=== PATIENT | male | born 1950 | race Caucasian/White ===

== ENCOUNTER 2016-07-30 06:30 | Day surgery (SDC) | payer MEDICARE, OTHER ==
[~2016-07-30] VITALS: Ht 175.3 cm; Wt 82.2 kg
[~2016-07-30 06:30] MED LIST: APIX5TAB PO; ASPI81TA82 PO; DICL50TA2 PO; METO25CR PO; OMEP20CA5 PO; TAMS0.4C4 PO
[2016-07-30] MEDS ORDERED: SODIUM CHLORIDE 0.9% FLUSH 5 ML FLUSH IV FLUSH PRN (07:00)
[2016-07-30] MEDS ORDERED: SODIUM BICARBONATE 100 MEQ in D5W 1000 ML IV SCH (07:00)
[2016-07-30 07:16] LABS: AUTOMATED NEUTROPHIL # 2.6 TH/MM3 (1.8-7.7); BASOPHIL % 0.6 % (0.0-2.0); EOSINOPHIL # 0.2 TH/MM3 (0-0.4); EOSINOPHIL % 4.6 % (0.0-4.0); HEMATOCRIT 40.9 % (39.0-51.0); HEMO FLAGS DIFF FINAL; LYMPH % 30.3 % (9.0-44.0); LYMPHOCYTE # 1.5 TH/MM3 (1.0-4.8); MEAN CELL VOLUME 93.8 FL (80.0-100.0); MEAN CORPUSCULAR HEMOGLOBIN 32.4 PG (27.0-34.0); MEAN CORPUSCULAR HGB CONC 34.6 % (32.0-36.0); MONO % 10.6 % (0.0-8.0); NEUT % 53.9 % (16.0-70.0); PLATELET COUNT 166 TH/MM3 (150-450); RED BLOOD COUNT 4.36 MIL/MM3 (4.50-5.90); WHITE BLOOD COUNT 4.8 TH/MM3 (4.0-11.0)
[2016-07-30] MEDS ORDERED: METO25TA3 PO (07:37)
[2016-07-30] MEDS ORDERED: [UNRECOGNIZED DRUG - CODE] PO (07:37)
[2016-07-30] MEDS ORDERED: TAMS0.4C4 PO (07:37)
[2016-07-30] MEDS ORDERED: OMEP20TA PO (07:37)
[2016-07-30] MEDS ORDERED: ASPI325T PO (07:37)
[2016-07-30 07:40] VITALS: BP 159/82; PULSE 49; RESP 18; TEMP 98.3; O2SAT 95
[2016-07-30 07:47] LABS: PROTHROMBIN TIME - PATIENT 11.2 SEC (9.8-11.6)
[2016-07-30] MEDS ORDERED: HEPARIN-NS/PF INJ 500 ML ONE (08:01)
[2016-07-30] MEDS ORDERED: HEPARIN SODIUM - IV 10,000 UNITS/10 ML VIAL ONE (08:02)
[2016-07-30] MEDS ORDERED: MIDAZOLAM HCL 5 MG/5 ML VIAL ONE (08:02)
[2016-07-30 08:05] LABS: BICARBONATE 28.2 MEQ/L (21.0-32.0)
--- NOTE | 2016-07-30 08:51 | HHI.PR ---
Immediate Post Op Note Procedure Date: Jul 30, 2016 Pre Op Diagnosis: PAD, L LE claudication Post Op Diagnosis: PAD, L LE claudication Surgeon: Sebastien Mcintosh Virtual Recruiter(s): none Procedure: Aortogram w/ L LE angiogram L SFA VACUUM TECHNICIAN (5mm) R AIRLINE MECHANIC Angioseal Findings: focal (TASC A) lesion Successful VACUUM TECHNICIAN peroneal runoff Complications: none Specimen(s) removed: none Estimated blood loss: 10mL Anesthesia: MAC Drains: None Patient to: Other (docu) Patient Condition: Good Implant/Devices: SEE IMPLANT LOG (if applicable) Date/Time of Procedure: SEE SURGICAL CARE RECORD Sebastien Mcintosh MD Jul 30, 2016 08:51
[2016-07-30] MEDS ORDERED: SODIUM CHLORIDE 0.9% FLUSH 5 ML FLUSH IV FLUSH SCH (09:00)
[2016-07-30] MEDS ORDERED: CLOPIDOGREL 75 MG TAB PO ONE (09:00)
[2016-07-30] MEDS ORDERED: PLAV75TA29 PO (09:11)
[2016-07-30] MEDS ORDERED: IOHEXOL 350 MG/ML 50 ML BTL (for Cath Lab) OTHER ONE (10:58)
[2016-07-30] MEDS ORDERED: IOHEXOL 350 MG/ML 100 ML BTL (for Cath Lab) OTHER ONE (10:58)
--- NOTE | 2016-07-31 09:39 | MP ---
cc: MADDY MCINTOSH MD DATE OF SURGERY 07/30/2016 PREOPERATIVE DIAGNOSIS Left lower extremity claudication. POSTOPERATIVE DIAGNOSIS Left lower extremity claudication. PROCEDURE 1. Aortogram with left lower extremity angiograms. 2. Left superficial femoral artery angioplasty. ATTENDING SURGEON Maddy Mcintosh MD ANESTHESIA Local with sedation. INDICATION Mr. Wright is a 66-year-old gentleman with left lower extremity claudication. He has known peripheral arterial disease, taken to the operating room for angiographic evaluation and treatment. There was no prior catheterization imaging available for my review. The patient was scheduled for treatment. Informed consent was obtained. The patient was taken to the operating room and placed supine on the operating table. Appropriate timeout was taken to ensure the patient's identity, operative site and planned procedure. No antibiotics were necessary since this was a clean procedure without a planned implantation of any foreign objects. Everyone in the room agreed with the time out and we proceeded. His bilateral groins were prepped and draped. The right groin was anesthetized with 1% lidocaine. A 21 gauge micropuncture needle was used to access the right common femoral artery. This was exchanged using Seldinger technique through a micropuncture sheath through which a 0.025 Glidewire was introduced. The micropuncture sheath was exchanged for a 4 Ghanaian sheath and a VCF catheter was placed over the wire and through the sheath an aortogram and pelvic arteriograms were obtained. Glidewire was introduced and navigated down to the left common femoral artery with VCF catheter advanced over this and left lower extremity arteriogram was obtained. The patient was systemically heparinized with 5000 units of IV heparin and a 0.05 Maradiaga wire was introduced and passed down to the distal superficial femoral artery. The VCF and 4 Ghanaian sheath were removed and a 6 Ghanaian 55 cm Tobias sheath was introduced. The 5 x 40 balloon was used to angioplasty the area of stenosis. At the completion of the angiograms there was excellent result without any extravasation. The wire, catheter and sheath were removed. The wound was closed with Angio-Seal. There were no complications. I was present and scrubbed for the entire procedure. INTERPRETATION IMAGES This patient has a patent infrarenal aorta, common iliac artery, external iliac arteries, hypogastric arteries bilaterally. The right external iliac artery has a stent. This is widely patent. The left common femoral artery and profunda and superficial femoral artery are widely patent. There is a focal TASC A stenosis of the mid SFA and this was extensively treated with an angioplasty. There was peroneal artery runoff. After angioplasty there was no residual stenosis. Maddy Mcintosh MD RJAlla/KK /11:23 AM /9:14 AM [facility]
== END 2016-07-30 11:28 | disposition home or self-care (01) ==
LOC: HDOC 06:30 → HDIC 06:31 → HDOC 11:28
PROVIDERS: ATTEND Surgery
DX: I70.212 Atherosclerosis of native arteries of extremities with intermittent claudication, left leg (principal); E78.00 Pure hypercholesterolemia, unspecified
CPT/HCPCS: 36200; 37224; 75625; 75710; 80048; 85025; 85610; C1725; C1760; C1769; C1893; G0269; J1644; J2250; J3010; Q9967

== ENCOUNTER 2016-11-20 05:54 | Day surgery (SDC) | payer MEDICARE, OTHER ==
[~2016-11-20] VITALS: Ht 175.3 cm; Wt 81.7 kg
[~2016-11-20 05:54] MED LIST changes: -APIX5TAB PO; +ASPI325T PO; -ASPI81TA82 PO; -DICL50TA2 PO; -METO25CR PO; +METO25TA3 PO; -OMEP20CA5 PO; +OMEP20TA PO; +PLAV75TA29 PO; +[UNRECOGNIZED DRUG - CODE] PO
[2016-11-20 06:20] VITALS: BP 184/107; PULSE 47; RESP 18; TEMP 98.2; O2SAT 98
[2016-11-20] MEDS ORDERED: SODIUM BICARBONATE 100 MEQ in D5W 1000 ML IV SCH (06:30)
[2016-11-20 06:42] LABS: APTT (PATIENT) 27.8 SEC (24.3-30.1); PROTHROMBIN TIME - PATIENT 10.7 SEC (9.8-11.6)
[2016-11-20 06:49] LABS: AUTOMATED NEUTROPHIL # 2.7 TH/MM3 (1.8-7.7); BASOPHIL % 0.7 % (0.0-2.0); EOSINOPHIL # 0.3 TH/MM3 (0-0.4); EOSINOPHIL % 5.1 % (0.0-4.0); HEMATOCRIT 41.7 % (39.0-51.0); HEMO FLAGS DIFF FINAL; LYMPH % 35.7 % (9.0-44.0); MEAN CELL VOLUME 94.1 FL (80.0-100.0); MEAN CORPUSCULAR HEMOGLOBIN 32.7 PG (27.0-34.0); MEAN CORPUSCULAR HGB CONC 34.8 % (32.0-36.0); MONO % 9.7 % (0.0-8.0); NEUT % 48.8 % (16.0-70.0); PLATELET COUNT 177 TH/MM3 (150-450); RED BLOOD COUNT 4.43 MIL/MM3 (4.50-5.90); RED CELL DISTRIBUTION WIDTH 12.8 % (11.6-17.2); WHITE BLOOD COUNT 5.6 TH/MM3 (4.0-11.0)
[2016-11-20 06:50] LABS: BICARBONATE 31.6 MEQ/L (21.0-32.0)
[2016-11-20] MEDS ORDERED: HEPARIN SODIUM - IV 10,000 UNITS/10 ML VIAL ONE ×2 (07:46→09:05)
[2016-11-20] MEDS ORDERED: MIDAZOLAM HCL 5 MG/ML VIAL (1 ML) ONE (07:46)
[2016-11-20] MEDS ORDERED: SODIUM CHLOR 0.9% 1000 ML BAG IV ONE ×2 (08:00→09:08)
--- NOTE | 2016-11-20 09:55 | HHI.PR ---
Immediate Post Op Note Procedure Date: November 20, 2016 Pre Op Diagnosis: B LE PAD, claudication L>R Post Op Diagnosis: B LE PAD, claudication L>R Surgeon: Sebastien Mcintosh Rn Picu(s): none Procedure: Aortogram w/ B LE angiogram L SFA orbital atherectomy and CONSERVATION TECHNICIAN with DCB R SFA CONSERVATION TECHNICIAN with DCB B PASTRY FINISHER Angioseal Findings: SFA stenosis, successfully treated B Additional Information: no stent implantation Complications: none apparent Specimen(s) removed: none Estimated blood loss: <10mL Anesthesia: MAC Drains: None Patient to: Other (DOCU) Patient Condition: Good Date/Time of Procedure: SEE SURGICAL CARE RECORD Sebastien Mcintosh MD November 20, 2016 09:55
[2016-11-20] MEDS ORDERED: CLOPIDOGREL 75 MG TAB PO ONE (10:00)
[2016-11-20] MEDS ORDERED: MORPHINE SULFATE 4 MG/ML INJ IV PUSH PRN (10:15)
--- NOTE | 2016-11-20 10:56 | MP ---
cc: MADDY AMIN MD DATE OF SURGERY: 11/20/2016 PREOPERATIVE DIAGNOSIS Bilateral lower extremity claudication, left greater than right. POSTOPERATIVE DIAGNOSIS Bilateral lower extremity claudication, left greater than right. PROCEDURE 1. Aortogram with bilateral lower extremity angiogram. 2. Left SFA orbital atherectomy with drug coated balloon angioplasty. 3. Right SFA drug coated balloon angioplasty. CLINICAL HISTORY The patient is a 66-year-old gentleman with bilateral lower extremity claudication, left greater than right. He has prior right external iliac artery stent and left SFA angioplasty and taken to the endovascular suite for angiographic evaluation and treatment. There is no prior catheterization imaging available for my review. DESCRIPTION OF PROCEDURE Informed consent was obtained from the patient. He was taken to the operating room and placed supine on the operating table and appropriate time-out was taken that showed the patient's identity, the operative site and planned procedure. The administration of antibiotics was not needed as this is a clean case without planned implantation of any foreign object. Everyone in the room agreed with the timeout and we proceeded. His bilateral groins were prepped and draped and the right groin was locally anesthetized with 1% lidocaine. A 21 gauge micropuncture needle was used to access the right common femoral artery, this was exchanged using Seldinger technique micropuncture sheath through which a 0.05 wire was introduced. Micropuncture sheath was exchanged for a 4-Iranian sheath and a VCF catheter was placed over the wire into the sheath and abdominal aortogram and pelvic arteriograms obtained. The Glidewire was introduced and navigated down to the left common femoral artery and the VCF catheter was advanced over this and a left lower extremity arteriogram was obtained. The patient systemically heparinized with 5000 units of IV heparin and approximately 30 minutes later 3000 additional units were administered. A Maradiaga wire was introduced. The VCF catheter was removed and the 4-Iranian sheath was removed and a 6-Iranian 55 cm Tobias sheath was introduced and placed into the left common femoral artery. The CXI catheter was placed over the Maradiaga wire and the Maradiaga was exchanged for a glide and then a ROADS AND PARKING LOTS SWEEPER OPERATOR wire. Using the ROADS AND PARKING LOTS SWEEPER OPERATOR and CXI we were able to navigate past the high-grade left SFA stenosis and this was confirmed angiographically. The ROADS AND PARKING LOTS SWEEPER OPERATOR wire was exchanged for a Viper wire and the CXI catheter was removed. The orbital atherectomy device was then brought up onto the field, prepped in the standard fashion and then introduced through the 6-Iranian sheath. The SFA was atherectomized without difficulty and then after atherectomy was angioplastied with a 5 x 150 drug coated balloon. The completion angiogram showed excellent result without recoil or extravasation, nor flow-limiting stenosis. The wire, catheter and sheath were removed and the wound was closed with AngioSeal. The left groin was anesthetized with 1% lidocaine and a 21 gauge micropuncture sheath was used to access the left common femoral artery. This was exchanged using Seldinger technique micropuncture sheath which a 0.05 Glidewire was used micropuncture sheath, exchanged for a 4-Iranian sheath and the VCF catheter was placed over the wire into the sheath and using the glide and VCF we were able to navigate down to the right common femoral artery and the Maradiaga wire was placed through the VCF catheter and exchanged for the glide. The VCF catheter was removed, 4-Iranian sheath was removed and 6-Iranian 55 cm Tobias was introduced. The Maradiaga wire was then passed down to the popliteal artery and the SFA was angioplastied with a 5 mm drug coated balloon. Completion angiogram showed excellent result without any recoil or extravasation. The wire, catheter and sheath were removed and the groin was closed with AngioSeal. There were no complications. I was present scrubbed and performed the entire procedure. INTERPRETATION IMAGES The patient has patent infrarenal aorta, patent renal arteries, patent common iliac arteries, hypogastric and external iliac arteries bilaterally. The right external iliac artery has a stent that is widely patent. The left common femoral and profunda are patent. The SFA is patent with several stenoses proximally and a high grade near occlusive stenosis at the mid to distal SFA. There is single vessel runoff to the foot. After atherectomy and angioplasty there is excellent result without any remaining hemodynamically significant lesion. There is also no dissection or extravasation. On the right-hand side the SFA has two areas of high-grade stenoses, both of which were treated successfully with drug coated balloon angioplasty and the completion results showed excellent result without any recoil, extravasation or flow-limiting lesion. MD CONTRERAS Flynn/KARMA /10:04 AM /10:27 AM
--- NOTE | 2016-12-05 13:56 | HHI.HP ---
History of Present Illness Chief Complaint: B LE claudication History of Present Illness 66 yo male with B LE claudication. Prior endovascular intervention x 2. No rest pain and no tissue loss. 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 Family History [place] Home Medications Active Scripts Clopidogrel (Plavix)75 Mg Tab75 Mg PO DAILY #30 TAB Ref 6 Prov:Charla Ortiz SURFACE WATER MANAGER 07/30/16 Reported Medications Aspirin 325 Mg Dwo616 Mg PO DAILY #30 TAB Ref 0 07/30/16 Diclofenac Potassium (Zipsor)25 Mg Cap25 Mg PO DAILY Ref 0 07/30/16 Metoprolol Tartrate 25 Mg Tab25 Mg PO DAILY #30 TAB Ref 0 07/30/16 Tamsulosin 0.4 Mg Cap0.4 Mg PO HS #30 CAP Ref 0 07/30/16 Omeprazole 20 Mg Tab20 Mg PO DAILY #30 TAB Ref 0 07/30/16 Coded Allergies: HMG-CoA Reductase Inhibitors (Verified Allergy, Intermediate, leg cramps, 09/12/15) Review of Systems Constitutional: DENIES: Fever, Chills Cardiovascular: COMPLAINS OF: Claudication, DENIES: Chest pain Physical Exam Neuro: alert, NAD HEENT: NC/AT Neck: no JVD Heart: reg rate Lungs: clear B Abdomen: soft, NT Vascular: palp femoral pulses B Extremities: no tissue loss, full ROM B Assessment and Plan Plan angio B LE today. Sebastien Mcintosh MD Dec 05, 2016 13:56
== END 2016-11-20 14:00 | disposition home or self-care (01) ==
LOC: HDIC 05:54 → HCVO 05:54
PROVIDERS: ATTEND Surgery
DX: I70.213 Atherosclerosis of native arteries of extremities with intermittent claudication, bilateral legs (principal); Z95.820 Peripheral vascular angioplasty status with implants and grafts
CPT/HCPCS: 37224; 37225; 75625; 75716; 80048; 85025; 85610; 85730; C1725; C1769; C2623; G0269; J1644; J2250; J3010; J7030